=== PATIENT | female | born 1950 | race Caucasian/White ===

== ENCOUNTER → 2018-06-11 | Emergency (ER) | payer OTHER ==
[~2018-06-11] VITALS: Ht 170.2 cm; Wt 68.0 kg
[~2018-06-11] MED LIST: ASPIR 8181 MG; BENADRYL ALLERG25 MG; CELEBREX200MG PO; GEMFIBROZIL600 MG; KOMBIGLYZE XR1 EAC1; LANTUS100 U/ML; LOSARTAN POTASS50 MG; NEURONTIN800 MG; NITROSTAT0.4 MG; NOVOLOG100 UNIT/1; PNEU16DI2; SIMVASTATIN20 MG; SKELAXIN800 MG PO; TIROSINT13 MCG; TOPROL XL25 MG; TRIGLIDE160 MG; VERAPAMIL ER180 MG
== END | disposition home or self-care (01) ==
LOC: ER 10:51
DX: G89.11 Acute pain due to trauma (principal); M25.552 Pain in left hip

== ENCOUNTER 2020-04-17 10:23 | Emergency (ER) | payer OTHER ==
[~2020-04-17] VITALS: Ht 167.6 cm; Wt 67.1 kg
[2020-04-17] MEDS ORDERED: FOLIC ACID1 MG PO (10:41)
[2020-04-17] MEDS ORDERED: NITROFURANTOIN100 M1 PO (10:41)
[2020-04-17] MEDS ORDERED: GABAPENTIN800 M1 PO (10:42)
[2020-04-17] MEDS ORDERED: FLUCONAZOLE150 MG PO (10:42)
[2020-04-17] MEDS ORDERED: HUMALOG100 UNIT/2 SQ (10:45)
[2020-04-17] MEDS ORDERED: VITAMIN D3250 MCG PO (10:46)
[2020-04-17] MEDS ORDERED: B-121000 MC1 PO (10:46)
[2020-04-17] MEDS ORDERED: JANUMET XR 50-1 EAC1 PO (10:46)
== END 2020-04-17 16:08 | disposition home or self-care (01) ==
LOC: ER 10:23
DX: R10.13 Epigastric pain (principal)

== ENCOUNTER 2022-02-23 11:02 | Emergency (ER) | payer OTHER ==
[~2022-02-23] VITALS: Ht 170.2 cm; Wt 68.5 kg
[~2022-02-23 11:02] MED LIST changes: +B-121000 MC1 PO; +FLUCONAZOLE150 MG PO; +FOLIC ACID1 MG PO; +GABAPENTIN800 M1 PO; +HUMALOG100 UNIT/2 SQ; +JANUMET XR 50-1 EAC1 PO; +NITROFURANTOIN100 M1 PO; +VITAMIN D3250 MCG PO
[2022-02-23] MEDS ORDERED: MELATONIN5 MG (11:19)
[2022-02-23] MEDS ORDERED: VOLTAREN ARTHRI20 GM (11:19)
[2022-02-23] MEDS ORDERED: CLARITIN10 MG (11:20)
[2022-02-23] MEDS ORDERED: BACLOFEN20 MG PO (14:49)
== END 2022-02-23 15:00 | disposition home or self-care (01) ==
LOC: ER 11:02
DX: G50.0 Trigeminal neuralgia (principal); H92.02 Otalgia, left ear; Z88.0 Allergy status to penicillin; Z91.041 Radiographic dye allergy status; E11.9 Type 2 diabetes mellitus without complications; Z79.4 Long term (current) use of insulin; I10 Essential (primary) hypertension; M81.0 Age-related osteoporosis without current pathological fracture; R68.84 Jaw pain

== ENCOUNTER 2024-08-26 10:17 | Emergency (ER) | payer OTHER ==
[~2024-08-26] VITALS: Ht 167.6 cm; Wt 68.9 kg
[~2024-08-26 10:17] MED LIST changes: +BACLOFEN20 MG PO; +CLARITIN10 MG; +MELATONIN5 MG; +VOLTAREN ARTHRI20 GM
[2024-08-26 10:51] VITALS: BP 160/70; O2SAT 97
[2024-08-26] MEDS ORDERED: DICLOFENAC SODI75 MG PO (11:11)
[2024-08-26] MEDS ORDERED: KETOROLAC TROMETHAMINE 60 MG VIAL IM ONE ×2 (11:15→11:21)
== END 2024-08-26 11:28 | disposition home or self-care (01) ==
LOC: ER 10:20
DX: M77.30 Calcaneal spur, unspecified foot (principal); I10 Essential (primary) hypertension; E11.9 Type 2 diabetes mellitus without complications; Z79.4 Long term (current) use of insulin; Z88.0 Allergy status to penicillin; Z91.041 Radiographic dye allergy status
CPT/HCPCS: 96372; 99282; J1885